=== PATIENT | male | born 1950 | race Caucasian/White ===

== ENCOUNTER 2016-09-06 06:42 | Day surgery (SDC) | payer OTHER ==
[2016-09-06] MEDS ORDERED: LACTATED RINGERS 1,000 ML ONE (06:50)
[2016-09-06] MEDS ORDERED: IV START KIT ONE (06:50)
[2016-09-06] MEDS ORDERED: PROPOFOL 20 ML IV ONE (07:49)
[2016-09-06] MEDS ORDERED: LACTATED RINGERS 1,000 ML IV SCH (08:30)
--- NOTE | 2016-09-08 09:40 | SURGPATH ---
[facility] [address] [place] [id number] Patient Name: AXEL MILLER MR#: [id number] : 1950 Gender: M Specimen #: [id number] Collected: 09/06/2016 Received: 09/07/2016 Reported: 09/08/2016 Submitting Phys: PRAVIN HAMLIN Copy To Phys: VLAD WATTS [facility] Clinical History / Pre-Operative Diagnosis: HISTORY OF COLON CANCER/POLYPECTOMIES Specimen Source / Surgical Procedure Performed: TRANSVERSE COLON POLYP Interpretation: TRANSVERSE COLON, POLYP, BIOPSY: - TUBULAR ADENOMA Electronically Signed Out Darryn Manzanares M.D. Gross Description: The specimen is received in a formalin filled container labeled with the patient's name and "transverse colon polyp". Two vasques biopsies are 0.2 and 0.4 cm. Totally embedded in one cassette. Edwin Alonso PClemente Microscopic Description: Levels reveal colonic mucosa surfaced by tubular glands with focal adenomatous features. High grade dysplasia and malignancy are not present. 1: 45626 D12.3
== END 2016-09-06 08:50 | disposition home or self-care (01) ==
LOC: SDC 06:42
PROVIDERS: ATTEND Surgery
PROC: 0DBL8ZZ Excision of Transverse Colon, Via Natural or Artificial Opening Endoscopic (ICD-10-PCS; principal; 2016-09-06)
DX: D12.3 Benign neoplasm of transverse colon (principal); K57.30 Diverticulosis of large intestine without perforation or abscess without bleeding; K64.8 Other hemorrhoids; N40.0 Benign prostatic hyperplasia without lower urinary tract symptoms; K64.4 Residual hemorrhoidal skin tags; I48.91 Unspecified atrial fibrillation; Z85.038 Personal history of other malignant neoplasm of large intestine; Z85.828 Personal history of other malignant neoplasm of skin; Z79.899 Other long term (current) drug therapy; Z79.82 Long term (current) use of aspirin; Z80.9 Family history of malignant neoplasm, unspecified; Z87.891 Personal history of nicotine dependence